=== PATIENT | female | born 1950 | race Hispanic/Latino ===

== ENCOUNTER 2019-03-02 15:51 | Emergency (ER) | payer OTHER ==
[~2019-03-02] VITALS: Ht 162.6 cm; Wt 78.0 kg
--- NOTE | 2019-03-02 16:13 | NUR ---
GIVEN CUP FOR UA. PT STATES CANT VOID NOW, BUT WILL TRY SOON
[2019-03-02] MEDS ORDERED: ACETAMINOPHEN 325 MG TAB PO ONE ×2 (16:14→20:00)
--- NOTE | 2019-03-02 16:49 | Diagnostic Imaging Report ---
EXAMINATION: PA and lateral views of the chest. COMPARISON: None CLINICAL HISTORY: Cough, shortness of breath, fever DISCUSSION: The lungs are well-inflated. Right middle lobe consolidation with loss of the right heart border. No pleural effusion or pneumothorax. Left lung is clear. Atherosclerotic calcification of the thoracic aorta. Otherwise normal heart size. No pulmonary edema. No acute osseous abnormality. Degenerative disc changes of the thoracic spine. IMPRESSION: Right middle lobe pneumonia. Follow-up chest radiograph in 8 weeks is suggested after appropriate treatment to document resolution. Signed by: Dr. Shen Jackson M.D. on 03/02/2019 4:46 PM
[2019-03-02 19:07] LABS: BASOPHILS # (AUTO) 0.1 (0.0-0.1); BASOPHILS % 0.8 % (0.0-1.0); EOSINOPHILS # (AUTO) 0.4 (0.0-0.4); EOSINOPHILS % 4.7 % (0.0-6.0); HEMATOCRIT 42.5 % (34.2-44.1); HEMOGLOBIN 13.9 g/dL (12.0-16.0); LYMPHOCYTES # (AUTO) 3.5 (1.0-3.2); MEAN CORPUSCULAR HEMOGLOBIN 27.3 pg (28-32); MEAN CORPUSCULAR HGB CONC 32.7 g/dL (31-35); MEAN CORPUSCULAR VOLUME 83.3 fL (81-99); MONOCYTES # (AUTO) 0.9 (0.2-0.8); MONOCYTES % 10.1 % (4.4-11.3); NEUTROPHILS # (AUTO) 4.1 (2.1-6.9); NEUTROPHILS % 45.1 % (38.7-80.0); PLATELET COUNT 271 x10e3/uL (140-360)
[2019-03-02 19:15] LABS: BILIRUBIN,URINE NEGATIVE (NEGATIVE); CLARITY,URINE SL CLOUDY (CLEAR); COLOR,URINE YELLOW (YELLOW); KETONES,URINE TRACE (NEGATIVE); LEUKOCYTE ESTERASE ,URINE NEGATIVE (NEGATIVE); NITRITE,URINE NEGATIVE (NEGATIVE); PROTEIN,URINE DIPSTICK NEGATIVE (NEGATIVE); URINE UROBILINOGEN 0.2 mg/dL (0.2 - 1)
[2019-03-02 19:24] LABS: BACTERIA,URINE MODERATE /HPF; EPITHELIAL CELLS,URINE MANY /LPF; TRANSITIONAL EPI CELLS,URINE MODERATE
[2019-03-02 19:30] LABS: ANION GAP 12.2 mmol/L (8-16); BLOOD UREA NITROGEN 15 mg/dL (7-26); CARBON DIOXIDE 27 mmol/L (22-29); CHLORIDE 104 mmol/L (98-107); POTASSIUM 3.2 mmol/L (3.5-5.1); SODIUM 140 mmol/L (136-145)
[2019-03-02 19:31] LABS: ALANINE AMINOTRANSFERASE 23 IU/L (0-55); ALBUMIN 3.7 g/dL (3.5-5.0); ALBUMIN/GLOBULIN RATIO 1.2 (0.8-2.0); ALKALINE PHOSPHATASE 103 IU/L (40-150); BUN/CREATININE RATIO 20 (6-25); CALCIUM 9.2 mg/dL (8.4-10.2); CREATININE, SERUM 0.75 mg/dL (0.57-1.11); EST GLOMERULAR FILTRATION RATE > 60 ML/MIN (60-); GLUCOSE 114 mg/dL (74-118)
[2019-03-02] MEDS ORDERED: AZITHROMYCIN 500MG/NS 250 ML 250 ML IV ONE (20:16)
[2019-03-02] MEDS ORDERED: CEFTRIAXONE SOD 1 GM/NS 50 ML 50 ML IV SCH (20:30)
[2019-03-02] MEDS ORDERED: SODIUM CHLORIDE 0.9% 1000ML 1,000 ML IV SCH (20:30)
[2019-03-02] MEDS ORDERED: ACETAMINOPHEN/CODEINE 300MG - 30MG TAB PO ONE ×2 (21:00)
[2019-03-02] MEDS ORDERED: TYLENOL WITH C1 EACH PO (23:11)
[2019-03-02] MEDS ORDERED: LEVAQUIN500 MG PO (23:11)
[2019-03-03 00:17] VITALS: BP 110/58
== END 2019-03-03 00:19 | disposition home or self-care (01) ==
LOC: ER 15:51
DX: R05 Cough (principal); J15.9 Unspecified bacterial pneumonia
CPT/HCPCS: 36415; 71046; 80053; 81001; 83605; 85025; 87040; 87086; 93005; 99284; J0456; J0696; J7030

== ENCOUNTER 2019-11-23 10:22 | Inpatient (IN) | payer MEDICARE ==
[2019-11-19 11:40] LABS: BASOPHILS # (AUTO) 0.1 (0.0-0.1); BASOPHILS % 0.8 % (0.0-1.0); EOSINOPHILS # (AUTO) 0.5 (0.0-0.4); EOSINOPHILS % 4.5 % (0.0-6.0); HEMATOCRIT 42.4 % (34.2-44.1); HEMOGLOBIN 13.8 g/dL (12.0-16.0); LYMPHOCYTES # (AUTO) 3.8 (1.0-3.2); LYMPHOCYTES % 38.1 % (18.0-39.1); MEAN CORPUSCULAR HEMOGLOBIN 27.9 pg (28-32); MEAN CORPUSCULAR HGB CONC 32.5 g/dL (31-35); MEAN CORPUSCULAR VOLUME 85.7 fL (81-99); MONOCYTES # (AUTO) 0.8 (0.2-0.8); MONOCYTES % 8.3 % (4.4-11.3); NEUTROPHILS # (AUTO) 4.8 (2.1-6.9); PLATELET COUNT 242 x10e3/uL (140-360); RED BLOOD COUNT 4.95 x10e6/uL (3.6-5.1); RED CELL DISTRIBUTION WIDTH 13.1 % (11.7-14.4)
[2019-11-19 11:55] LABS: ANION GAP 14.3 mmol/L (8-16); BLOOD UREA NITROGEN 13 mg/dL (7-26); BUN/CREATININE RATIO 18 (6-25); CALCIUM 9.4 mg/dL (8.4-10.2); CARBON DIOXIDE 24 mmol/L (22-29); CHLORIDE 103 mmol/L (98-107); CREATININE, SERUM 0.72 mg/dL (0.57-1.11); EST GLOMERULAR FILTRATION RATE > 60 ML/MIN (60-); GLUCOSE 87 mg/dL (74-118); POTASSIUM 4.3 mmol/L (3.5-5.1); SODIUM 137 mmol/L (136-145)
--- NOTE | 2019-11-19 12:27 | Diagnostic Imaging Report ---
EXAMINATION: CHEST 2 VIEWS INDICATION: Pre-admit. COMPARISON: Chest radiograph 03/02/2019. FINDINGS: TUBES and LINES: None. LUNGS: Lungs are well inflated. Interval resolution of patchy opacity at the right lung base. Mild patchy left basilar opacity. No evidence of pulmonary edema. PLEURA: No pleural effusion or pneumothorax. HEART AND MEDIASTINUM: The cardiomediastinal silhouette is unremarkable. There are atherosclerotic calcifications within the aorta. BONES AND SOFT TISSUES: No acute osseous lesion. Soft tissues are unremarkable. UPPER ABDOMEN: No free air under the diaphragm. IMPRESSION: Interval resolution of right middle lobe pneumonia. Mild patchy left basilar opacity, more likely atelectasis than pneumonia. Signed by: Dr. Kenisha Foley MD on 11/19/2019 12:24 PM
[~2019-11-23 10:22] MED LIST: ATORVASTATIN CA20 MG PO; LEVAQUIN500 MG PO; LEVOTHYROXINE112 MCG PO; LISINOPRIL10 MG PO; METFORMIN HCL500 MG PO; TRULICITY0.75 MG/0. SC; TYLENOL WITH C1 EACH PO
--- OUTSIDE RECORDS SUMMARY | 2019-11-23 10:24 | XMS REPORT ---
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 Allergies, Adverse Reactions, Alerts Allergy Name Allergy Type Status Severity Reaction(s) Onset Date Inactive Date Treating Clinician Comments No Known Drug Intolerances DA Active U 2009-05-11 00:00:00 Medications This patient has no known medications. Results Test Description Test Time Test Comments Text Results Atomic Results Result Comments CHEST 2 VIEWS 2019-11-19 12:19:00 [place] [id number] Patient Name: MAGDALENA DALY MR #: [id number] : 1950 Age/Sex: 69/F Req #: [id number] Adm Physician: Ordered by: JELLY SERNA MD Report #: [id number] Location: OR Room/Bed: Procedure: [id number] DX/CHEST 2 VIEWS Exam Date: 11/19/19 Exam Time: 1142 REPORT STATUS: Signed EXAMINATION: CHEST 2 VIEWS INDICATION: Pre-admit. COMPARISON: Chest radiograph 03/02/2019. FINDINGS: TUBES and LINES: None. LUNGS: Lungs are well inflated. Interval resolution of patchy opacity at the right lung base. Mild patchy left basilar opacity. No evidence of pulmonary edema. PLEURA: No pleural effusion or pneumothorax. HEART AND MEDIASTINUM: The cardiomediastinal silhouette is unremarkable. There are atherosclerotic calcifications within the aorta. BONES AND SOFT TISSUES: No acute osseous lesion. Soft tissues are unremarkable. UPPER ABDOMEN: No free air under the diaphragm. IMP RESSION: Interval resolution of right middle lobe pneumonia. Mild patchy left basilar opacity, more likely atelectasis than pneumonia. Signed by: Dr. Aleta Baker MD on 11/19/2019 12:24 PM Dictated By: ALETA BAKER MD 1224 Transcribed By: LALITA on 11/19/19 1224 COPY TO: JELLY SERNA MD CHEST 2 VIEWS 2019-03-02 16:44:00 [place] [id number] Patient Name: MAGDALENA DALY MR #: [id number] : 1950 Age/Sex: 68/F Req #: [id number] Adm Physician: Ordered by: GRADY RODRIGUEZ MD Report #: [id number] Location: ER Room/Bed: Procedure: [id number] DX/CHEST 2 VIEWS Exam Date: 03/02/19 Exam Time: 1628 REPORT STATUS: Signed EXAMINATION: PA and lateral views of the chest. SHEA RISON: None CLINICAL HISTORY: Cough, shortness of breath, fever DISCUSSION: The lungs are well-inflated. Right middle lobe consolidation with loss of the right heart border. No pleural effusion or pneumothorax. Left lung is clear. Atherosclerotic calcification of the thoracic aorta. Otherwise normal heart size. No pulmonary edema. No acute osseous abnormality. Degenerative disc changes of the thoracic spine. IMPRESSION: Right middle lobe pneumonia. Follow-up chest radiograph in 8 weeks is suggested after appropriate treatment to document resolution. Signed by: Dr. Riley Holden M.D. on 03/02/2019 4:46 PM Dictated By: RILEY HOLDEN MD 45 Transcribed By: LALITA on 03/02/191645 COPY TO: GRADY RODRIGUEZ MD
[2019-11-23] MEDS ORDERED: CEFTRIAXONE SOD 1 GM/NS 50 ML 50 ML IV ONE (10:56)
[2019-11-23] MEDS ORDERED: GENTAMICIN 80MG/NS 100 ML 200 ML IV ONE (10:56)
[2019-11-23] MEDS ORDERED: CLINDAMYCIN 300MG 50 ML IV ONE (10:57)
[2019-11-23] MEDS ORDERED: IOPAMIDOL 300MG/ML 50ML INFUS..BTL IV ONE (12:35)
[2019-11-23] MEDS ORDERED: BACITRACIN 50,000 UNIT VIAL ONE (12:36)
[2019-11-23] MEDS ORDERED: ACETAMINOPHEN 1000 MG/100 ML 100 ML IV ONE (15:12)
[2019-11-23] MEDS ORDERED: FENTANYL CITRATE/PF 100MCG/2 ML INJ ONE ×2 (16:17→19:54)
[2019-11-23] MEDS ORDERED: METOCLOPRAMIDE HCL 10 MG/2ML VIAL ONE (16:29)
[2019-11-23] MEDS ORDERED: ONDANSETRON HCL INJ 2MG/ML 2ML 2 MG/ML VIAL ONE ×2 (16:29→17:21)
[2019-11-23] MEDS ORDERED: MEPERIDINE HCL INJ 25 MG/ML VIAL ONE (16:53)
[2019-11-23 17:00] VITALS: BP 115/54
[2019-11-23] MEDS ORDERED: DEXAMETHASONE SOD PHOS INJ 4 MG/ML VIAL ONE (17:21)
[2019-11-23] MEDS ORDERED: SEVOFLURANE INHAL SOLN 250 ML PEN BTL ONE (17:21)
[2019-11-23] MEDS ORDERED: PROPOFOL IV EMULSION 10 MG/ML 20 ML VIAL ONE (17:21)
[2019-11-23] MEDS ORDERED: NEOSTIGMINE 1 MG/ML 10ML VIAL ONE (17:21)
[2019-11-23] MEDS ORDERED: LIDOCAINE HCL 2% LOCAL INJ 5 ML SDV VIAL INJ ONE (17:21)
[2019-11-23] MEDS ORDERED: ROCURONIUM BROMIDE 10 MG/ML 5ML VIAL ONE (17:21)
[2019-11-23] MEDS ORDERED: GLYCOPYRROLATE INJ 0.2 MG/ML VIAL ONE (17:21)
[2019-11-23 18:36] VITALS: BP 115/54
[2019-11-23] MEDS ORDERED: MORPHINE SULFATE 1 MG/ML 30ML PCA IV PRN (18:45)
[2019-11-23] MEDS ORDERED: NALOXONE HCL INJ 0.4 MG/ML AMP IV PRN (18:45)
[2019-11-23] MEDS ORDERED: DIPHENHYDRAMINE HCL INJ 50 MG/ML VIAL IM PRN (18:45)
[2019-11-23] MEDS ORDERED: ONDANSETRON HCL INJ 2MG/ML 2ML 2 MG/ML VIAL IV PRN (18:45)
[2019-11-23] MEDS: SOD CHL 0.45%/POT CHL 20MEQ 1,000 ML IV SCH (19:45)
[2019-11-23] MEDS ORDERED: MIDAZOLAM HCL 2 MG/2 ML VIAL ONE (19:54)
--- NOTE | 2019-11-23 19:55 | NUR ---
paged dr lopez for order clarification about the diet order that was put in
[2019-11-23 19:57] VITALS: BP 127/62
[2019-11-23 20:45] VITALS: BP 127/62
--- NOTE | 2019-11-23 21:00 | NUR ---
Assessment done.no resp.distress.aaox4.iv fluid running to right ac.on morphine glue cook pump.de leon care given.family member at bed side.received a call from stating that keep pt on npo.no need ng tube as mentioned in the diet order.abd.midline dressing is dry.scd and ginette hose in place.bed locked and in lowest position.phone and call light within reach.instructed to call for assistance as needed.
--- NOTE | 2019-11-23 22:00 | NUR ---
FAMILY MEMBER STATING THAT " AND PREVIOUS SHIFT MEDICAL ECONOMICS CONSULTANT TOLD THAT PATIENT CAN HAVE CLEAR LIQUID."I TOLD THAT ORDERED NPO. A NURSE I CONFIRMED WITH HIM.NOTIFIED TO CHARGE NURSE TOO.
[2019-11-23] MEDS: PIPER-TAZ 3.375 GM 50 ML IV SCH (22:03)
[2019-11-23 23:35] VITALS: BP 120/63
[2019-11-24] VITALS (7 sets, daily range): BP systolic 89–144; BP diastolic 46–88
[2019-11-24] MEDS: ACETAMINOPHEN 1000 MG/100 ML IV SCH ×2 (00:13→05:09)
--- NOTE | 2019-11-24 00:20 | NUR ---
Boyle care given.stable condition.resting now.
[2019-11-24] MEDS: SOD CHL 0.45%/POT CHL 20MEQ 1,000 ML IV SCH (04:57)
[2019-11-24 05:47] LABS: BASOPHILS % 0.2 % (0.0-1.0); HEMATOCRIT 36.3 % (34.2-44.1); LYMPHOCYTES # (AUTO) 1.9 (1.0-3.2); LYMPHOCYTES % 16.7 % (18.0-39.1); MEAN CORPUSCULAR HGB CONC 33.1 g/dL (31-35); MEAN CORPUSCULAR VOLUME 84.8 fL (81-99); MONOCYTES % 8.8 % (4.4-11.3); NEUTROPHILS # (AUTO) 8.2 (2.1-6.9); NEUTROPHILS % 73.9 % (38.7-80.0); PLATELET COUNT 210 x10e3/uL (140-360); RED BLOOD COUNT 4.28 x10e6/uL (3.6-5.1); RED CELL DISTRIBUTION WIDTH 12.9 % (11.7-14.4)
[2019-11-24] MEDS: PIPER-TAZ 3.375 GM 50 ML IV SCH ×3 (06:00→21:36)
[2019-11-24 06:09] LABS: ANION GAP 12.5 mmol/L (8-16); BLOOD UREA NITROGEN 10 mg/dL (7-26); BUN/CREATININE RATIO 14 (6-25); CALCIUM 8.1 mg/dL (8.4-10.2); CARBON DIOXIDE 23 mmol/L (22-29); CHLORIDE 105 mmol/L (98-107); CREATININE, SERUM 0.71 mg/dL (0.57-1.11); EST GLOMERULAR FILTRATION RATE > 60 ML/MIN (60-); GLUCOSE 131 mg/dL (74-118); POTASSIUM 4.5 mmol/L (3.5-5.1); SODIUM 136 mmol/L (136-145)
--- NOTE | 2019-11-24 07:00 | NUR ---
BEDSIDE REPORT DONE. PT IS ALERT SITTING UP IN BED, NO S/S OF DISTRESS. CALL LIGHT WITHIN REACH AND INSTRUCTED PT TO CALL RN FOR HELP. DAUGHTER IS AT THE BEDSIDE
--- NOTE | 2019-11-24 07:00 | NUR ---
Bed side shift report given to the oncoming Glendy in he bed.stable condition.
[2019-11-24] MEDS ORDERED: ACETAMINOPHEN 325 MG TAB PO PRN (08:45)
[2019-11-24] MEDS ORDERED: ONDANSETRON HCL 4 MG ORAL DISINTEGRATING TAB PO PRN (08:45)
[2019-11-24] MEDS ORDERED: DEXTROSE 50% SYRINGE 50 ML IV PRN (08:45)
[2019-11-24] MEDS ORDERED: SODIUM CHLORIDE 0.9% 1000ML 1,000 ML IV SCH (09:30)
[2019-11-24] MEDS: DOCUSATE SODIUM LIQD 100 MG/10 ML UDC NG SCH ×2 (09:36→17:10)
[2019-11-24] MEDS: LEVOTHYROXINE SODIUM 125 MCG TAB PO SCH (10:43)
[2019-11-24] MEDS: HYDROCODONE/APAP 5MG-325MG TAB PO PRN ×3 (11:10→23:56)
[2019-11-24] MEDS: INSULIN LISPRO 100 UNIT/1 ML 3ML VIAL SQ SCH ×3 (11:30→21:00)
--- NOTE | 2019-11-24 13:15 | History and Physical ---
CHIEF COMPLAINT: Status post sacrocolpopexy with mesh. SUMMARY: The patient is a 69-year-old female with recurrent urinary tract infection secondary to a prolapsed urinary bladder associated with also urinary incontinence. The patient is status post urinary bladder prolapse treatment. The patient is otherwise stable. She is comfortable. She has history of total abdominal hysterectomy and salpingo-oophorectomy. The patient is stable postoperative day #1. PAST MEDICAL HISTORY: Hypertension, diabetes type 2, and dyslipidemia. PAST SURGICAL HISTORY: Tonsillectomy, total abdominal hysterectomy with bilateral salpingo-oophorectomy. SOCIAL HISTORY: The patient does not smoke or use alcohol. No regular drug. ALLERGIES: TO NO KNOWN ALLERGIES. HOME MEDICATIONS: List is reviewed. REVIEW OF SYSTEMS: Postoperative pain appropriate. PHYSICAL EXAMINATION: VITAL SIGNS: Temperature is 98, blood pressure 98/46, pulse rate 68, and respirations 18. GENERAL: The patient is not in acute distress. She is awake. HEENT: Normocephalic and atraumatic. Anicteric. NECK: Supple grossly. PULMONARY: Clear. CARDIOVASCULAR: Regular rate and rhythm. ABDOMEN: Soft and postoperative tenderness without any guarding. No rebound tenderness. EXTREMITIES: No gross cyanosis or edema. NEUROLOGIC: No gross focal deficit. LABORATORY DATA: Sodium is 136, potassium 4.5, chloride 105, bicarb 23, BUN is 10, creatinine 0.7, and glucose is 131. WBC is 11, hemoglobin 12, hematocrit 36, and platelets is 210. IMPRESSION: 1. Postoperative day #1 with urinary bladder prolapse, urinary bladder lift. 2. Multiple baseline medical problems. PLAN: Continue with current management. Resume home medication as appropriate. Check the patient's lab work. We will monitor the patient closely at this time. MD DODIE Cheney/JAVIER /[id number]
--- NOTE | 2019-11-24 14:10 | NUR ---
Visit made by the Spiritual Care Department Pastoral Visitor, Lesia Anthony. PV provided pastoral presence, prayer, hospitality, and supportive listening. Pastoral Visitor informed pt/family of the scope of Rug Clean[employer]per Services and availability. LORRAINE ESPINOZA Sonographer Spiritual Care Department O: [phone] Pager: [phone] ([phone] number calling from)
[2019-11-24] MEDS: ALBUTEROL/IPRATROPIUM 3 ML NEB NEB PRN (20:40)
[2019-11-24] MEDS: ATORVASTATIN 40 MG TAB PO SCH (21:35)
[2019-11-24] MEDS ORDERED: FUROSEMIDE INJ 10 MG/ML 2 ML VIAL IV NR (22:00)
[2019-11-24] MEDS: GUAIFENESIN 600 MG TAB PO SCH (23:50)
[2019-11-25] VITALS (8 sets, daily range): BP systolic 106–134; BP diastolic 53–68
--- NOTE | 2019-11-25 00:30 | NUR ---
Assisted to use rest room.had a small amount of bowel movement.back to bed safely.pain medication given.getting breathing treatment.bed locked and in lowest position.phone and call light within reach.instructed to call for assistance as needed.
[2019-11-25] MEDS: BENZONATATE 100 MG CAP PO PRN ×2 (04:29→10:12)
[2019-11-25] MEDS: HYDROCODONE/APAP 5MG-325MG TAB PO PRN ×5 (05:11→21:44)
[2019-11-25] MEDS: PIPER-TAZ 3.375 GM 50 ML IV SCH ×3 (05:50→21:27)
[2019-11-25] MEDS: LEVOTHYROXINE SODIUM 125 MCG TAB PO SCH (05:50)
[2019-11-25 05:57] LABS: BASOPHILS # (AUTO) 0.1 (0.0-0.1); BASOPHILS % 0.6 % (0.0-1.0); EOSINOPHILS # (AUTO) 0.3 (0.0-0.4); EOSINOPHILS % 2.7 % (0.0-6.0); HEMATOCRIT 35.2 % (34.2-44.1); LYMPHOCYTES # (AUTO) 3.8 (1.0-3.2); LYMPHOCYTES % 36.3 % (18.0-39.1); MEAN CORPUSCULAR HEMOGLOBIN 27.4 pg (28-32); MEAN CORPUSCULAR HGB CONC 31.3 g/dL (31-35); MEAN CORPUSCULAR VOLUME 87.8 fL (81-99); MONOCYTES % 9.3 % (4.4-11.3); NEUTROPHILS # (AUTO) 5.4 (2.1-6.9); NEUTROPHILS % 50.8 % (38.7-80.0); PLATELET COUNT 188 x10e3/uL (140-360); RED BLOOD COUNT 4.01 x10e6/uL (3.6-5.1); RED CELL DISTRIBUTION WIDTH 13.2 % (11.7-14.4)
[2019-11-25 06:26] LABS: ANION GAP 12.7 mmol/L (8-16); BLOOD UREA NITROGEN 9 mg/dL (7-26); BUN/CREATININE RATIO 13 (6-25); CALCIUM 8.2 mg/dL (8.4-10.2); CARBON DIOXIDE 24 mmol/L (22-29); CHLORIDE 107 mmol/L (98-107); CREATININE, SERUM 0.68 mg/dL (0.57-1.11); EST GLOMERULAR FILTRATION RATE > 60 ML/MIN (60-); GLUCOSE 116 mg/dL (74-118); POTASSIUM 3.7 mmol/L (3.5-5.1); SODIUM 140 mmol/L (136-145)
--- NOTE | 2019-11-25 07:00 | NUR ---
BEDSIDE REPORT DONE. PT IS SLEEPING, NO S/S OF DISTRESS. CALL LIGHT WITHIN REACH BED SAFETY IMPLEMENTED. Addendum: 11/25/19 at 0748 by Eusebia Gross RN BEDSIDE REPORT DONE. PT IS ALERT SITTING UP IN BED, NO S/S OF DISTRESS. PT COMPLAINING OF CONGESTION AND LOWER ABDOMINAL PAIN. CALL LIGHT WITHIN REACH AND INSTRUCTED PT TO CALL RN FOR HELP. DAUGHTER IS AT THE BEDSIDE
--- NOTE | 2019-11-25 07:25 | NUR ---
Patient had multiple times of loose stool.oncoming Rn is aware of that.Bed side shift report given to the oncoming Rn.stable condition.
[2019-11-25] MEDS: INSULIN LISPRO 100 UNIT/1 ML 3ML VIAL SQ SCH ×5 (07:30→21:27)
[2019-11-25] MEDS: ALBUTEROL/IPRATROPIUM 3 ML NEB NEB PRN ×3 (08:00→20:30)
[2019-11-25] MEDS: DOCUSATE SODIUM LIQD 100 MG/10 ML UDC NG SCH ×2 (09:00→17:00)
[2019-11-25] MEDS: GUAIFENESIN 600 MG TAB PO SCH ×2 (09:10→17:51)
--- NOTE | 2019-11-25 11:15 | Diagnostic Imaging Report ---
EXAMINATION: CHEST 2 VIEWS INDICATION: Cough COMPARISON: Multiple prior chest radiograph, most recently 11/19/2019 FINDINGS: LINES/TUBES:None LUNGS:The lungs are mildly hyperinflated. Mild subsegmental atelectasis at the left lung base. PLEURA:No pleural effusion or pneumothorax. MEDIASTINUM:The cardiomediastinal silhouette appears unchanged in size and shape. Atherosclerotic calcifications of the thoracic aorta. BONES/SOFT TISSUES:No acute osseous injury. ABDOMEN:No free air under the diaphragm. IMPRESSION: Mildly hyperinflated lungs. No focal pneumonia or pulmonary edema. Signed by: Yue Bae MD on 11/25/2019 11:12 AM
--- NOTE | 2019-11-25 13:35 | NUR ---
REMOVED HOFFMAN PER DR. AGUDELO REQUEST. 800ML EMPTIED FROM BAG
--- NOTE | 2019-11-25 15:02 | NUR ---
PATIENT VOIDED FOR FIRST TIME SINCE HOFFMAN WAS REMOVED. 200ML COLLECTED. BLADDER SCAN WAS USED AND SHOWED NO RESIDUAL (0 ML).
--- NOTE | 2019-11-25 15:45 | NUR ---
spoke with dr. lopez and informed him of PVR
--- NOTE | 2019-11-25 19:00 | NUR ---
RECEIVED REPORT FROM PREVIOUS NURSE. CALL LIGHT WITHIN REACH. PATIENT IN BED. DAUGHTER AT THE BEDSIDE. PATIENT IN NO PAIN OR DISTRESS.
[2019-11-25] MEDS: ATORVASTATIN 40 MG TAB PO SCH (21:26)
[2019-11-26] VITALS: BP 113/66
--- NOTE | 2019-11-26 01:23 | NUR ---
PATIENT ASLEEP IN BED. CALL LIGHT WITHIN REACH. PATIENT IN NO PAIN OR DISTRESS. BELONGINGS WITHIN REACH
[2019-11-26] MEDS: ALBUTEROL/IPRATROPIUM 3 ML NEB NEB PRN ×2 (02:00→07:55)
[2019-11-26] MEDS: HYDROCODONE/APAP 5MG-325MG TAB PO PRN ×2 (02:35→10:09)
[2019-11-26 04:00] VITALS: BP 99/54
[2019-11-26 05:45] LABS: BASOPHILS # (AUTO) 0.1 (0.0-0.1); BASOPHILS % 0.6 % (0.0-1.0); EOSINOPHILS # (AUTO) 0.5 (0.0-0.4); EOSINOPHILS % 4.7 % (0.0-6.0); HEMATOCRIT 30.9 % (34.2-44.1); HEMOGLOBIN 9.9 g/dL (12.0-16.0); LYMPHOCYTES # (AUTO) 3.5 (1.0-3.2); LYMPHOCYTES % 35.7 % (18.0-39.1); MEAN CORPUSCULAR HEMOGLOBIN 27.9 pg (28-32); MONOCYTES % 10.3 % (4.4-11.3); NEUTROPHILS # (AUTO) 4.7 (2.1-6.9); NEUTROPHILS % 48.3 % (38.7-80.0); PLATELET COUNT 180 x10e3/uL (140-360); RED BLOOD COUNT 3.55 x10e6/uL (3.6-5.1); RED CELL DISTRIBUTION WIDTH 13.2 % (11.7-14.4)
[2019-11-26 06:02] LABS: ANION GAP 11.6 mmol/L (8-16); BLOOD UREA NITROGEN 11 mg/dL (7-26); BUN/CREATININE RATIO 16 (6-25); CALCIUM 8.1 mg/dL (8.4-10.2); CARBON DIOXIDE 25 mmol/L (22-29); CHLORIDE 106 mmol/L (98-107); CREATININE, SERUM 0.69 mg/dL (0.57-1.11); EST GLOMERULAR FILTRATION RATE > 60 ML/MIN (60-); GLUCOSE 110 mg/dL (74-118); POTASSIUM 3.6 mmol/L (3.5-5.1); SODIUM 139 mmol/L (136-145)
[2019-11-26] MEDS: PIPER-TAZ 3.375 GM 50 ML IV SCH (06:20)
[2019-11-26] MEDS: LEVOTHYROXINE SODIUM 125 MCG TAB PO SCH (06:20)
--- NOTE | 2019-11-26 07:15 | NUR ---
GAVE BEDSIDE SHIFT REPORT TO ONCOMING NURSE. CALL LIGHT WITHIN REACH. PATIENT ASLEEP IN BED.
[2019-11-26] MEDS: INSULIN LISPRO 100 UNIT/1 ML 3ML VIAL SQ SCH (07:30)
[2019-11-26 08:00] VITALS: BP 119/58
[2019-11-26] MEDS: DOCUSATE SODIUM LIQD 100 MG/10 ML UDC NG SCH (09:00)
[2019-11-26] MEDS: GUAIFENESIN 600 MG TAB PO SCH (09:29)
[2019-11-26 09:31] VITALS: BP 119/58
--- NOTE | 2019-11-26 11:00 | NUR ---
PT DISCHARGED HOME TO HOME WITH DAUGHTER, PT AND DAUGHTER WAS EDUCATED ON PT MEDICATIONS. PT IV SITE REMOVED SITE NO SWELLING NO REDNESS TO SITE.
--- NOTE | 2019-11-26 17:57 | Discharge Summary ---
PRIMARY CARE PHYSICIAN: Dr. Ajay Lopez. PROGRAM DIRECTOR CABLE TELEVISION: Dr. Jason Garcia. FINAL DIAGNOSES: 1. The patient is status post urological procedures post urinary bladder suspension with mesh done by Dr. Jason Garcia on November 23, 2019 and patient admitted for postoperative care. 2. Diarrhea, resolving. 3. Upper respiratory symptoms of cough and congestion, resolving. SUMMARY: A 69-year-old female with postoperative care. Please review the postoperative note from Dr. Jason Garcia. The note has not yet been dictated and is still pending. The patient is stable in postoperative care. The patient did have some loose stool, but now resolving. She was on antibiotic Zosyn. The patient is also having some upper respiratory symptoms of cough and congestion and much improved now. The patient is otherwise stable. She does feel well. Repeated chest x-ray did not review any pneumonia or infection. The patient will go home today. She will resume home medication. Tylenol No. 3 for pain. To take precaution with diarrhea since the patient was on Zosyn. We will give the patient vancomycin 250 mg p.o. three times a day for 7 days. Questran as needed for diarrhea. Zofran p.r.n. Tessalon Perles p.r.n. Mucinex 600 mg twice a day for 15 days for congestion and cough. The patient is otherwise stable. I advised the patient to follow up with Dr. Jason Garcia for postoperative care and follow up with her family physician, Dr. Ajay Lopez for any further adjustment of her medication. MD DODIE Cheney/JAVIER /[id number]
--- NOTE | 2020-01-13 03:50 | Operative Report ---
DATE OF PROCEDURE: 11/23/2019 SURGEON: Jason Garcia MD PREOPERATIVE DIAGNOSES: 1. Severe cystocele and severe grade 4 vaginal cuff prolapse with cystorectocele. 2. Stress type urinary incontinence. 3. Urinary tract infections. POSTOPERATIVE DIAGNOSES: 1. Severe cystocele and severe grade 4 vaginal cuff prolapse with cystorectocele. 2. Stress type urinary incontinence. 3. Urinary tract infections. OPERATION PERFORMED: 1. Cystourethroscopy with bilateral ureteral catheterization and retrograde ureteropyelography leaving the temporary indwelling ureteral stents. 2. Interpretation of retrograde ureteropyelography. 3. Supervision of fluoroscopy, no radiologist present. 4. Complicated sacrocolpopexy utilizing mesh, procedure made complicated by the patient's anatomical concerns. 5. Anterior vesicourethropexy. MARINE ENGINEER CPVEC: Karine Garcia MD. ANESTHESIA: General. COMPLICATIONS: None. CLINICAL SUMMARY: Trupti Chanel is a 69-year-old woman with the above preoperative diagnoses. She did not want the pessary and wanted reconstruction. She is aware of the risks of bleeding, infection, injury to adjacent structures, persistent incontinence, de jonathan incontinence, need for additional procedures, failure of the procedure, and she elected to proceed. OPERATIVE PROCEDURE IN DETAIL: Informed consent was verified. Trupti Chanel was properly identified, taken to the operating room, and placed on operating table in supine position. Anesthesia was uneventfully begun. The patient was then carefully and gently repositioned in dorsal lithotomy position with all pressure points well padded. Her genitalia were prepared and draped in usual sterile fashion. Cystoscope sheath inserted in the patient's urethra and bladder was drained. Panendoscopy revealed grade 2 trabeculations, but no tumors, no stones, no diverticula. Normally positioned configured ureteral orifices were identified. A 5-Upper Sorbian open-ended ureteral catheter was used to cannulate each ureter. Cystoscope was then withdrawn and the Boyle catheter was placed. Contrast was injected via both open-ended catheters performing retrograde pyelograms. Interpretation of retrograde ureteropyelography contrast was instilled in retrograde fashion bilaterally. There were no tumors, no stones, no diverticula. Unobstructed drainage was observed bilaterally fluoroscopically. The patient was repositioned in frog-leg position with all pressure points carefully well padded. Her abdomen and genitalia were again prepared and draped in usual sterile. The examination under anesthesia that we did during the cystoscopy revealed grade 4 vaginal cuff prolapse and a grade 2 cystorectocele. The patient is status post total abdominal hysterectomy, bilateral salpingo-oophorectomy, as well as being status post abdominoplasty. She remains obese, which is what made the surgery more complicated. A midline infraumbilical incision was then made, carried through all layers of the abdominal wall. We developed the space of Retzius and entered the patient's peritoneum. We utilized self-retaining retractor, went to the posterior peritoneum. We incised overlying the sacral promontory. Open-ended catheters that were left in place, made it easier to find the ureters. We identified the sacral promontory. We placed 2 Ethibond sutures through the periosteum. We then isolated the vaginal cuff dissected it to free up 2 cm of the anterior portion by reflecting the bladder. Two pieces of polypropylene mesh were utilized, one was secured to the anterior vagina, one was secured to the posterior vagina. They were then additionally secured to the vaginal cuff. The opposite end of the pieces of mesh, we then secured to the sacral promontory utilizing the previously placed Ethibond sutures. We retroperitonealized the mesh after copiously irrigating with antibiotic irrigant. We then isolated the ureterovesical junction and did a Mckenzie colposuspension by placing 4-0 Vicryl sutures, 2 were placed laterally at the ureterovesical junction and 2 were placed laterally just distal to the first two sutures. We then tied them to Mario's ligament. Copious irrigation was performed. We closed the peritoneum to approximate the rectus muscles with interrupted sutures and then we approximated the rectus fascia with heavy Vicryl suture in interrupted [id number] fashion. Skin was approximated with skin yordy. We copiously irrigated with antibiotic irrigant to the layers of closure. Sterile dressings were applied. The patient was then uneventfully reversed from anesthesia and taken to recovery room in stable condition with no complications to the procedure. She tolerated the procedure well. Sponge, needle, and instrument count were of course correct x2 at the end of the case. For estimated blood loss, please refer the anesthesia record. We will plan to proceed with postoperative care and ongoing urological followup. Jason Garcia MD [place]/MODL /[id number] cc: Ajay Lopez MD
== END 2019-11-26 11:16 | disposition home or self-care (01) | DRG 748 ==
LOC: OR 10:22 → MED/SURG 15:34 → OBSVTOIN 18:32
PROVIDERS: ADMIT Internal Medicine; ATTEND Internal Medicine
PROC: BT141ZZ Fluoroscopy of Kidneys, Ureters and Bladder using Low Osmolar Contrast (ICD-10-PCS; 2019-11-23)
PROC: 0USG0ZZ Reposition Vagina, Open Approach (ICD-10-PCS; principal; 2019-11-23 13:00)
PROC: 0TSD0ZZ Reposition Urethra, Open Approach (ICD-10-PCS; 2019-11-23 13:00)
DX: N81.10 Cystocele, unspecified (principal); N39.0 Urinary tract infection, site not specified; I10 Essential (primary) hypertension; E11.9 Type 2 diabetes mellitus without complications; E78.5 Hyperlipidemia, unspecified; N39.3 Stress incontinence (female) (male); E66.9 Obesity, unspecified; R19.7 Diarrhea, unspecified; R05 Cough
CPT/HCPCS: 36415; 71046; 74420; 80048; 82948; 85025; 87493; 93005; 94640; C1758; C1781; J0696; J1100; J1580; J2001; J2175; J2250; J2270; J2405; J2543; J2710; J2765; J3010; J7030

== ENCOUNTER 2023-02-20 07:31 | Observation (INO) | payer MEDICARE, OTHER ==
[2023-02-14 13:41] LABS: BASOPHILS # (AUTO) 0.1 (0.0-0.1); BASOPHILS % 0.6 % (0.0-1.0); EOSINOPHILS # (AUTO) 0.7 (0.0-0.4); EOSINOPHILS % 5.6 % (0.0-6.0); HEMATOCRIT 42.7 % (34.2-44.1); HEMOGLOBIN 13.9 g/dL (12.0-16.0); LYMPHOCYTES # (AUTO) 4.9 (1.0-3.2); LYMPHOCYTES % 40.1 % (18.0-39.1); MEAN CORPUSCULAR HEMOGLOBIN 27.5 pg (28-32); MEAN CORPUSCULAR HGB CONC 32.6 g/dL (31-35); MEAN CORPUSCULAR VOLUME 84.4 fL (81-99); MONOCYTES % 7.8 % (4.4-11.3); NEUTROPHILS # (AUTO) 5.5 (2.1-6.9); NEUTROPHILS % 45.5 % (38.7-80.0); PLATELET COUNT 252 x10e3/uL (140-360); RED BLOOD COUNT 5.06 x10e6/uL (3.6-5.1); RED CELL DISTRIBUTION WIDTH 14.5 % (11.7-14.4)
[2023-02-14 13:58] LABS: ANION GAP 14.6 mmol/L (8-16); CALCIUM 9.2 mg/dL (8.4-10.2); CREATININE, SERUM 0.73 mg/dL (0.57-1.11); POTASSIUM 4.6 mmol/L (3.5-5.1)
[~2023-02-20] VITALS: Ht 162.6 cm; Wt 74.8 kg
[~2023-02-20 07:31] MED LIST changes: +BREZTRI AEROS10.7 GM INH; +CANDICIDAL CAP1 EACH PO; +ELIQUIS5 MG PO; +FLONASE ALLERG9.9 ML INH; +GLUCOSAMINE1000 MG PO; +LEVOTHYROXINE100 MC1 PO; +MAGNESIUM OXID400 MG PO; +MONTELUKAST SOD10 MG PO; +OMEPRAZOLE40 MG PO; +OZEMPIC0.25 MG/0. SC; +PREDNISONE20 MG PO; +SOTALOL80 MG PO
[2023-02-20] MEDS ORDERED: CEFAZOLIN SODIUM 2 GM ONE (07:43)
[2023-02-20] MEDS ORDERED: LACTATED RINGER'S 1,000 ML ONE (07:43)
[2023-02-20 07:45] LABS: BASOPHILS # (AUTO) 0.1 (0.0-0.1); BASOPHILS % 0.9 % (0.0-1.0); EOSINOPHILS # (AUTO) 0.5 (0.0-0.4); EOSINOPHILS % 5.7 % (0.0-6.0); HEMATOCRIT 39.9 % (34.2-44.1); HEMOGLOBIN 13.1 g/dL (12.0-16.0); LYMPHOCYTES # (AUTO) 2.9 (1.0-3.2); LYMPHOCYTES % 31.9 % (18.0-39.1); MEAN CORPUSCULAR HEMOGLOBIN 27.4 pg (28-32); MEAN CORPUSCULAR HGB CONC 32.8 g/dL (31-35); MEAN CORPUSCULAR VOLUME 83.5 fL (81-99); MONOCYTES # (AUTO) 0.9 (0.2-0.8); MONOCYTES % 9.3 % (4.4-11.3); NEUTROPHILS # (AUTO) 4.7 (2.1-6.9); NEUTROPHILS % 51.9 % (38.7-80.0); PLATELET COUNT 228 x10e3/uL (140-360); RED BLOOD COUNT 4.78 x10e6/uL (3.6-5.1); RED CELL DISTRIBUTION WIDTH 14.1 % (11.7-14.4)
[2023-02-20] MEDS ORDERED: ACETAMINOPHEN 1000 MG/100 ML 100 ML IV ONE (08:45)
[2023-02-20] MEDS ORDERED: SUGAMMADEX SODIUM 200 MG/2 ML VIAL IV ONE (08:45)
[2023-02-20] MEDS ORDERED: BUPIVACAINE HCL 0.5% INJ 30 ML VIAL INJ ONE (08:47)
[2023-02-20] MEDS ORDERED: EPINEPHRINE 1 MG/ML 30ML VIAL ONE ×2 (08:47→10:48)
[2023-02-20] MEDS ORDERED: DEXAMETHASONE SOD PHOS 10 MG/1 ML VIAL ONE (12:18)
[2023-02-20] MEDS ORDERED: ROPIVACAINE 0.5% 5 MG/ML 30 ML SDV ONE (12:18)
[2023-02-20] MEDS ORDERED: PROPOFOL IV EMULSION 10 MG/ML 20 ML VIAL ONE (12:38)
[2023-02-20] MEDS ORDERED: LIDOCAINE HCL 2% LOCAL INJ 5 ML SDV VIAL INJ ONE (12:38)
[2023-02-20] MEDS ORDERED: DEXAMETHASONE SOD PHOS INJ 4 MG/ML SDV ONE (12:38)
[2023-02-20] MEDS ORDERED: ROCURONIUM BROMIDE 10 MG/ML 5ML VIAL IV ONE (12:38)
[2023-02-20] MEDS ORDERED: ONDANSETRON HCL INJ 2MG/ML 2ML 2 MG/ML VIAL ONE (12:38)
[2023-02-20] MEDS ORDERED: SEVOFLURANE INHAL SOLN 250 ML PEN BTL ONE (12:38)
[2023-02-20] MEDS ORDERED: POVIDONE IODINE 0.05% 0.05 % ML PO ONE (12:38)
[2023-02-20] MEDS ORDERED: MIDAZOLAM HCL 2 MG/2 ML VIAL ONE (12:41)
[2023-02-20] MEDS ORDERED: FENTANYL CITRATE/PF 100MCG/2 ML INJ ONE (12:41)
[2023-02-20 14:06] LABS: CREATINE KINASE 63 IU/L (29-168)
[2023-02-20] MEDS ORDERED: DILTIAZEM HCL 5 MG/ML 5 ML VIAL ONE (14:06)
[2023-02-20 15:30] VITALS: BP 113/72
[2023-02-20 16:46] VITALS: BP 107/77
[2023-02-20] MEDS ORDERED: APIXABAN 5 MG TABLET PO SCH (17:00)
[2023-02-20] MEDS ORDERED: FORMOTEROL INH PRN (17:00)
[2023-02-20] MEDS ORDERED: DEXTROSE 50% SYRINGE 50 ML IV PRN (17:00)
[2023-02-20] MEDS ORDERED: GLYCOPYR INH PRN (17:00)
[2023-02-20] MEDS ORDERED: BUDESONIDE INH PRN (17:00)
[2023-02-20] MEDS ORDERED: PREDNISONE 20 MG TAB PO PRN (17:00)
[2023-02-20] MEDS ORDERED: LEVOTHYROXINE112 MCG PO (17:07)
[2023-02-20] MEDS: SOTALOL HCL 80 MG TAB PO SCH (17:43)
[2023-02-20] MEDS: INSULIN LISPRO 100 UNIT/1 ML 3ML VIAL SQ SCH (17:46)
[2023-02-20 19:54] VITALS: BP 105/57
[2023-02-20 20:00] VITALS: BP 105/57
[2023-02-20] MEDS ORDERED: ATORVASTATIN 40 MG TAB PO SCH (21:00)
[2023-02-20] MEDS: FLUTICASONE PROPIONATE NASAL SPRAY NS SCH (22:33)
[2023-02-21] VITALS: BP 114/62
[2023-02-21 04:00] VITALS: BP 110/57
[2023-02-21] MEDS ORDERED: LEVOTHYROXINE SODIUM 112 MCG TAB PO SCH (06:00)
[2023-02-21] MEDS: INSULIN LISPRO 100 UNIT/1 ML 3ML VIAL SQ SCH (07:30)
[2023-02-21 08:03] VITALS: BP 123/64
[2023-02-21] MEDS ORDERED: MAGNESIUM OXIDE 400 MG TAB PO SCH (09:00)
[2023-02-21] MEDS ORDERED: MONTELUKAST SODIUM 10 MG TAB PO SCH (09:00)
[2023-02-21] MEDS ORDERED: PANTOPRAZOLE SOD 40 MG TABEC PO SCH (09:00)
[2023-02-21] MEDS: SOTALOL HCL 80 MG TAB PO SCH (09:36)
[2023-02-21] MEDS: HYDROCODONE/APAP 5MG-325MG TAB PO PRN ×2 (09:36→14:21)
[2023-02-21] MEDS: FLUTICASONE PROPIONATE NASAL SPRAY NS SCH (09:39)
[2023-02-21 09:55] VITALS: BP 123/64
[2023-02-21 12:13] VITALS: BP 115/52
== END 2023-02-21 15:35 | disposition home or self-care (01) ==
LOC: OR 07:31 → PACU V 14:09 → MED/SURG 15:13
PROVIDERS: ADMIT Internal Medicine; ATTEND Internal Medicine
DX: S46.012A Strain of muscle(s) and tendon(s) of the rotator cuff of left shoulder, initial encounter (principal); M65.812 Other synovitis and tenosynovitis, left shoulder; S46.112A Strain of muscle, fascia and tendon of long head of biceps, left arm, initial encounter; M75.02 Adhesive capsulitis of left shoulder; M19.012 Primary osteoarthritis, left shoulder; I48.20 Chronic atrial fibrillation, unspecified; E11.9 Type 2 diabetes mellitus without complications; I10 Essential (primary) hypertension; E78.5 Hyperlipidemia, unspecified; E03.9 Hypothyroidism, unspecified; W19.XXXA Unspecified fall, initial encounter; Z20.822 Contact with and (suspected) exposure to COVID-19; Z01.812 Encounter for preprocedural laboratory examination; Z01.818 Encounter for other preprocedural examination; Z01.810 Encounter for preprocedural cardiovascular examination; Z79.02 Long term (current) use of antithrombotics/antiplatelets; Z79.84 Long term (current) use of oral hypoglycemic drugs; Z79.85 Long-term (current) use of injectable non-insulin antidiabetic drugs; Z79.899 Other long term (current) drug therapy; Z86.73 Personal history of transient ischemic attack (TIA), and cerebral infarction without residual deficits
CPT/HCPCS: 0223U; 29824; 29826; 29827; 36415 ×3; 71046; 80048; 82550; 82553; 82948 ×2; 84484; 85025 ×2; 87086; 93005 ×2; 99252; C1713; G0378 ×2; J0131; J1100 ×2; J2001; J2250; J2405; J2704; J2795; J3010; J7121; S0164

== ENCOUNTER → 2024-03-11 | Outpatient (REF) | payer MEDICARE ==
[~2024-03-11] MED LIST changes: +IOPAMIDOL 370 MG/ML 100 ML INFUS..BTL INJ ONE; +LEVOTHYROXINE88 MCG PO; +SODIUM CHLORIDE 0.9% 250ML 250 ML ONE
== END ==
LOC: CT 07:15
PROVIDERS: ATTEND Urology
DX: R31.0 Gross hematuria (principal)
CPT/HCPCS: 74178; J7050; Q9967

== ENCOUNTER → 2025-06-30 | Outpatient (REF) | payer MEDICARE ==
[~2025-06-30] MED LIST changes: -IOPAMIDOL 370 MG/ML 100 ML INFUS..BTL INJ ONE; -SODIUM CHLORIDE 0.9% 250ML 250 ML ONE
== END ==
LOC: CT 15:18
PROVIDERS: ATTEND Urology
DX: N20.0 Calculus of kidney (principal)
CPT/HCPCS: 74176